=== PATIENT | female | born 1945 ===

== ENCOUNTER 2021-03-16 09:04 | Day surgery (SDC) | payer OTHER | END 2021-03-16 14:40 | disposition home or self-care (01) | LOC: AMB-ENDOS 09:04 | PROVIDERS: ATTEND Colon & Rectal Surgery | DX: D12.2 Benign neoplasm of ascending colon (principal); D12.3 Benign neoplasm of transverse colon; K64.2 Third degree hemorrhoids ==

== ENCOUNTER → 2022-07-05 08:00 | Outpatient (CLI) | payer OTHER | END | disposition home or self-care (01) | LOC: LAB 08:00 → ADM 14:00 → CIR.AMB 07-09 14:00 → EDSTATUS 07-09 14:00 | PROVIDERS: ATTEND Colon & Rectal Surgery | DX: D12.5 Benign neoplasm of sigmoid colon (principal); Z86.010 Personal history of colon polyps; K92.1 Melena; R19.4 Change in bowel habit; K52.89 Other specified noninfective gastroenteritis and colitis ==